=== PATIENT | male | born 1995 | race African-American/Black ===

== ENCOUNTER 2016-11-23 01:14 | Emergency (ER) | payer BC ==
[~2016-11-23] VITALS: Ht 175.3 cm; Wt 71.2 kg
[2016-11-23 01:28] VITALS: BP 128/65
[2016-11-23 04:24] LABS: Urine Bilirubin Negative (Negative); Urine Blood Negative /uL (Negative); Urine Color Yellow (Yellow); Urine Glucose Normal (Normal); Urine Mucus FEW (None Seen); Urine Nitrite Negative (Negative); Urine RBC <1 /hpf (0 - 3)
[2016-11-23 04:25] LABS: Urine Ketone 2+ (Negative)
[2016-11-23] MEDS ORDERED: KETOROLAC TROMETH 60MG/2ML VIAL IM ONE (05:45)
== END 2016-11-23 06:08 | disposition home or self-care (01) ==
LOC: ER 01:14
DX: M54.5 Low back pain (principal); M79.1 Myalgia
CPT/HCPCS: 74176; 81001; 81002